=== PATIENT | female | born 1965 | race Two or more races ===

== ENCOUNTER 2025-04-18 17:55 | Emergency (ER) | payer OTHER ==
[~2025-04-18] VITALS: Ht 175.3 cm; Wt 77.1 kg
[2025-04-18] MEDS ORDERED: SYNTHROID50 MCG PO (18:14)
[2025-04-18] MEDS ORDERED: TOPROL XL100 M1 PO (18:14)
[2025-04-18] MEDS ORDERED: LIPITOR20 MG PO (18:14)
[2025-04-18] MEDS ORDERED: ELVITEG/COB/EMTRI/TENOFO DISOP 1 UDTAB TABLET PO STA (18:40)
[2025-04-18 19:31] LABS: ALT/SGPT 42.0 U/L (12-78); AST/SGOT 19.0 U/L (15-37); BILIRUBIN TOTAL 0.49 mg/dL (0.3-1.2); BUN CREA RATIO 32.0 (7.0-25.0); CREATININE SERUM 0.75 mg/dL (0.55-1.02); GFR 78.82; GLOBULINA 3.7 G/DL (2.4-3.5); GLUCOSE FASTING 90.0 mg/dL (65-100); OSMOLALITY SERUM 287.0 MOSM/KG (275-295)
== END 2025-04-18 20:55 | disposition home or self-care (01) ==
LOC: ER 17:55
PROVIDERS: Preventive Medicine Public Health & General Preventive Medicine
DX: S61.230A Puncture wound without foreign body of right index finger without damage to nail, initial encounter (principal); W46.1XXA Contact with contaminated hypodermic needle, initial encounter; Y93.89 Activity, other specified; Y92.238 Other place in hospital as the place of occurrence of the external cause; Y99.9 Unspecified external cause status; I10 Essential (primary) hypertension